=== PATIENT | male | born 1990 | race Native Hawaiian/Other Pacific Islander ===

== ENCOUNTER 2021-04-12 14:43 | Emergency (ER) | payer MEDICAID, OTHER ==
[~2021-04-12] VITALS: Ht 172.7 cm; Wt 122.5 kg
[2021-04-12 14:43] VITALS: BP_SYST 131
[~2021-04-12 14:43] MED LIST: ARIP15TA2 PO; FLAX100020 PO; OMEG500C3 PO
--- NOTE | 2021-04-12 14:43 | NUR ---
BROUGHT BACK TO BED #1 AND TRIAGED. REPORT GIVEN TO KATHI PT STATES HE TAKES DEPAKOTE 500MG BID AND GEODON 80 BID, STATES HE IS COMPLAINT WITH MEDS.
--- NOTE | 2021-04-12 15:05 | NUR ---
Pt. bib aunt with concerns that he is having thoughts of suicide and feels like he is having a manic episode, states with season change and recent loss of grandmother concerned he needs help, has never attempted suicide but has had thoughts no actual plan in place, pt. very forthcoming in giving information, has had bipolar since he was 18 years old
--- NOTE | 2021-04-12 15:09 | NUR ---
ER at bedside examining patient.
--- NOTE | 2021-04-12 15:45 | NUR ---
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
[2021-04-12 16:39] LABS: BASOPHILS % (AUTO) 0.3 % (0.0-2.0); EOSINOPHILS # (AUTO) 0.2 K/uL (0.0-0.4); EOSINOPHILS % (AUTO) 1.9 % (0.0-4.0); HEMATOCRIT 43.1 % (36-54); HEMOGLOBIN 14.6 g/dL (14.0-18.0); LYMPHOCYTES # (AUTO) 2.2 K/uL (1.0-5.5); LYMPHOCYTES % (AUTO) 25.8 % (20.5-51.5); MEAN CORPUSCULAR HEMOGLOBIN 32 pg (27-31); MEAN CORPUSCULAR HGB CONC 34 % (32-36); MEAN CORPUSCULAR VOLUME 94 fL (79.0-98.0); MONOCYTES # (AUTO) 0.4 K/uL (0.0-1.0); MONOCYTES % (AUTO) 4.5 % (1.7-9.3); NEUTROPHILS # (AUTO) 5.8 K/uL (1.8-7.7); NEUTROPHILS % (AUTO) 67.5 % (40.0-70.0); PLATELET COUNT (AUTO) 160 K/uL (130-430); RED BLOOD CELL COUNT(AUTO) 4.61 MIL/uL (4.2-6.2); RED CELL DISTRIBUTION WIDTH 13.8 % (9.0-15.0); WHITE BLOOD COUNT (AUTO) 8.6 K/uL (4.8-10.8)
[2021-04-12 17:10] LABS: ANION GAP 7 (5-15); CALCIUM 8.7 mg/dL (8.4-11.0); CHLORIDE 103 mmol/L (98-107); CREATININE 1.17 mg/dL (0.55-1.30); GLUCOSE 282 mg/dL (70-99); POTASSIUM 3.7 mmol/L (3.5-5.1); SODIUM SERUM 140 mmol/L (136-145); UREA NITROGEN, BLOOD 18 mg/dL (8-21)
[2021-04-12 17:16] LABS: VALPROIC ACID 50 ug/mL (50-100)
[2021-04-12 17:18] LABS: ACETAMINOPHEN < 1 ug/mL (1-30); GFR AFRICAN AMERICAN 94 mL/min (>90)
[2021-04-12 17:19] LABS: ALCOHOL, BLOOD < 3 mg/dL (<10)
[2021-04-12] MEDS ORDERED: ALPRAZolam 0.25 MG TABLET PO ONE (18:00)
[2021-04-12] MEDS ORDERED: NICOTINE 14 MG/24 HR PATCH.TD24 TD SCH (18:00)
--- NOTE | 2021-04-12 18:20 | NUR ---
urine sample obtained and sent to lab
[2021-04-12 19:19] LABS: BARBITURATE, URINE NEGATIVE (NEG <=200); BENZODIAZEPINE, URINE NEGATIVE (NEG <=150); CANNABINOID, URINE POSITIVE (NEG <=50); COCAINE, URINE NEGATIVE (NEG <=150); METHAMPHETAMINES SCREEN,URINE NEGATIVE (NEG <=500); OPIATE, URINE NEGATIVE (NEG <=100); PHENCYCLIDINE SCREEN,URINE NEGATIVE (NEG <=25); UR TRICYCLIC ANTIDEPRESSANTS NEGATIVE (NEG <=300); URINE AMPHETAMINE NEGATIVE (NEG <=500); URINE METHADONE NEGATIVE (NEG <=200); URINE OXYCODONE SCREEN NEGATIVE (NEG <=100); URINE PROPOXYPHENE SCREEN NEGATIVE (NEG <=300)
--- NOTE | 2021-04-12 19:30 | NUR ---
Note undone in EDM - 04/12/21 at 2053 by CARLOS Patient given written and verbal discharge instructions and verbalizes understanding. ER discussed with patient the results and treatment provided. Patient in stable condition. ID arm band removed. Patient educated on pain management and to follow up with PMD. Pain Scale 0/10. Opportunity for questions provided and answered. Medication side effect fact sheet provided.
--- NOTE | 2021-04-12 19:30 | NUR ---
ASSUMED CARE OF PT FROM KATHI BARKSDALE
[2021-04-12 20:51] VITALS: BP_SYST 143
--- NOTE | 2021-04-12 20:51 | NUR ---
Patient given written and verbal discharge instructions and verbalizes understanding. ER MD discussed with patient the results and treatment provided. Patient in stable condition. ID arm band removed. Patient educated on pain management and to follow up with PMD. Pain Scale 0/10. Opportunity for questions provided and answered. Medication side effect fact sheet provided.
== END 2021-04-12 20:51 | disposition home or self-care (01) ==
LOC: SED 14:43
DX: F30.10 Manic episode without psychotic symptoms, unspecified (principal); Z88.8 Allergy status to other drugs, medicaments and biological substances; Z79.899 Other long term (current) drug therapy; Z20.822 Contact with and (suspected) exposure to COVID-19
CPT/HCPCS: 36415; 80048; 80164; 80307; 82962; 85025; 87081; 87426; 93005; 99285; G0480; G0481; G0482

== ENCOUNTER 2022-04-02 07:32 | Emergency (ER) | payer OTHER, MEDICAID ==
[~2022-04-02] VITALS: Ht 172.7 cm; Wt 122.5 kg
[2022-04-02 07:52] VITALS: BP_SYST 142
--- NOTE | 2022-04-02 07:56 | NUR ---
BIB TO ROOM, PT STATES COUGH AND CONGESTION X1-2 WEEKS WITH DIFF BREATHING AT NIGHT. PT ALERT, RESP EASY, MM PINK, NO DISTRESS. REPORT TO ALINA
--- NOTE | 2022-04-02 08:00 | NUR ---
RECEIVED PT FROM SHAMIR VALDEZ. PT BIBS FOR SOB AND COUGH. PT IS AAOX4. RESP E/U. LUNG SOUND DIMINISHED AND NONPRODUCTIVE COUGH NOTED. PT ON R/A. DENIES N/V/D/C. DENIES PAIN.
--- NOTE | 2022-04-02 08:15 | NUR ---
DR. CHEN AT BEDSIDE TO ASSESS PT.
--- NOTE | 2022-04-02 08:29 | NUR ---
covid and influenza swab collected and sent to lab.
[2022-04-02] MEDS ORDERED: predniSONE 20 MG TABLET PO ONE (08:30)
[2022-04-02] MEDS ORDERED: ALBUTEROL SULFATE 0.083% 2.5 MG/3 ML VIAL.NEB INH ONE (08:30)
[2022-04-02] MEDS ORDERED: PRED20TA PO (09:11)
[2022-04-02] MEDS ORDERED: ALBMDI INH (09:11)
[2022-04-02] MEDS ORDERED: predniSONE 20 MG TABLET ONE (09:46)
--- NOTE | 2022-04-02 09:51 | NUR ---
SCHEDULED MED GIVEN ORDERED AND TOLERATED WELL.
[2022-04-02 10:02] VITALS: BP_SYST 132
--- NOTE | 2022-04-02 10:05 | NUR ---
Patient given written and verbal discharge instructions and verbalizes understanding. ER MD discussed with patient the results and treatment provided. Patient in stable condition. ID arm band removed. Rx of ALBUTEROL/ PREDNISONE given. Patient educated on pain management and to follow up with PMD. Pain Scale 0/10. Opportunity for questions provided and answered. Medication side effect fact sheet provided.
== END 2022-04-02 10:02 | disposition home or self-care (01) ==
LOC: SED 07:32
DX: J44.1 Chronic obstructive pulmonary disease with (acute) exacerbation (principal); R05.9 Cough, unspecified; R06.02 Shortness of breath; F17.200 Nicotine dependence, unspecified, uncomplicated; F12.90 Cannabis use, unspecified, uncomplicated; Z88.6 Allergy status to analgesic agent; Z79.899 Other long term (current) drug therapy; Z20.822 Contact with and (suspected) exposure to COVID-19
CPT/HCPCS: 36415; 71045; 94640; 99284; 87804 ×2; 87426; J7512; J7613

== ENCOUNTER 2022-09-30 14:31 | Emergency (ER) | payer MEDICAID, OTHER ==
[~2022-09-30] VITALS: Ht 172.7 cm; Wt 111.1 kg
[~2022-09-30 14:31] MED LIST changes: +ALBMDI INH; +PRED20TA PO
[2022-09-30 14:35] VITALS: BP_SYST 124
[2022-09-30 15:06] LABS: BASOPHILS # (AUTO) 0.1 K/uL (0.0-0.2); BASOPHILS % (AUTO) 0.9 % (0.0-2.0); EOSINOPHILS # (AUTO) 0.2 K/uL (0.0-0.4); EOSINOPHILS % (AUTO) 1.6 % (0.0-4.0); HEMATOCRIT 46.4 % (36-54); HEMOGLOBIN 15.9 g/dL (14.0-18.0); LYMPHOCYTES # (AUTO) 2.2 K/uL (1.0-5.5); LYMPHOCYTES % (AUTO) 21.2 % (20.5-51.5); MEAN CORPUSCULAR HEMOGLOBIN 32 pg (27-31); MEAN CORPUSCULAR HGB CONC 34 % (32-36); MEAN CORPUSCULAR VOLUME 93 fL (79.0-98.0); MONOCYTES # (AUTO) 0.7 K/uL (0.0-1.0); MONOCYTES % (AUTO) 6.9 % (1.7-9.3); NEUTROPHILS # (AUTO) 7.3 K/uL (1.8-7.7); NEUTROPHILS % (AUTO) 69.4 % (40.0-70.0); PLATELET COUNT (AUTO) 177 K/uL (130-430); RED BLOOD CELL COUNT(AUTO) 4.98 MIL/uL (4.2-6.2); RED CELL DISTRIBUTION WIDTH 13.4 % (9.0-15.0); WHITE BLOOD COUNT (AUTO) 10.5 K/uL (4.8-10.8)
[2022-09-30 15:17] LABS: ALANINE AMINOTRANSFERASE 45 U/L (12-78); ALBUMIN 3.5 g/dL (3.4-4.8); ANION GAP 6 (5-15); ASPARTATE AMINOTRANSFERASE 24 U/L (10-37); CALCIUM 9.3 mg/dL (8.4-11.0); CHLORIDE 102 mmol/L (98-107); CREATININE 1.33 mg/dL (0.55-1.30); GFR AFRICAN AMERICAN 80 mL/min (>90); GLUCOSE 100 mg/dL (70-99); TOTAL BILIRUBIN 0.4 mg/dL (0.0-1.0); UREA NITROGEN, BLOOD 21 mg/dL (8-21)
[2022-09-30 15:19] LABS: ACETAMINOPHEN < 1 ug/mL (1-30); ALCOHOL, BLOOD < 3 mg/dL (<10)
[2022-09-30] MEDS ORDERED: NICOTINE 14 MG/24 HR PATCH.TD24 TD ONE (19:00)
[2022-09-30] MEDS ORDERED: NICOTINE 21 MG/24 HR PATCH.TD24 TD ONE (19:08)
[2022-09-30] MEDS ORDERED: NICOTINE 21 MG/24 HR PATCH.TD24 TD SCH (19:15)
[2022-09-30] MEDS ORDERED: LOSA50TA28 PO (19:58)
[2022-09-30] MEDS ORDERED: DIVA-74 PO (19:58)
[2022-09-30] MEDS ORDERED: ZIPR80CA23 PO (19:58)
[2022-09-30] MEDS ORDERED: ZIPRASIDONE HCL 20 MG CAPSULE (GEODON) PO SCH (21:00)
[2022-09-30] MEDS ORDERED: DIVALPROEX SODIUM 250 MG TABLET(DEPAKOTE) PO ONE (21:00)
[2022-09-30 22:32] LABS: BARBITURATE, URINE NEGATIVE (NEG <=200); BENZODIAZEPINE, URINE NEGATIVE (NEG <=150); COCAINE, URINE NEGATIVE (NEG <=150); METHAMPHETAMINES SCREEN,URINE NEGATIVE (NEG <=500); PHENCYCLIDINE SCREEN,URINE NEGATIVE (NEG <=25); URINE AMPHETAMINE NEGATIVE (NEG <=500); URINE METHADONE NEGATIVE (NEG <=200); URINE OXYCODONE SCREEN NEGATIVE (NEG <=100); URINE PROPOXYPHENE SCREEN NEGATIVE (NEG <=300)
[2022-09-30 22:33] LABS: CANNABINOID, URINE POSITIVE (NEG <=50); OPIATE, URINE POSITIVE (NEG <=100); UR TRICYCLIC ANTIDEPRESSANTS NEGATIVE (NEG <=300)
[2022-09-30] MEDS ORDERED: FAMOTIDINE PF 20 MG/2 ML VIAL ONE (23:06)
[2022-10-01] MEDS ORDERED: DIVALPROEX SODIUM 250 MG TABLET(DEPAKOTE) PO ONE (09:15)
[2022-10-01] MEDS ORDERED: LORazepam 1 MG TABLET PO ONE (09:15)
[2022-10-01 13:39] VITALS: BP_SYST 134
== END 2022-10-01 10:42 ==
LOC: SED 14:31
DX: Z04.6 Encounter for general psychiatric examination, requested by authority (principal); R45.851 Suicidal ideations; F31.9 Bipolar disorder, unspecified; Z88.6 Allergy status to analgesic agent; Z79.899 Other long term (current) drug therapy; Z20.822 Contact with and (suspected) exposure to COVID-19
CPT/HCPCS: 99285; 87426; 80307; 80053; 85025; 36415; G0482; J3490; G0480; G0481